=== PATIENT | male | born 1955 | race Caucasian/White ===

== ENCOUNTER 2019-08-05 11:13 | Outpatient (CLI) | payer OTHER | END 2019-08-05 11:27 | disposition home or self-care (01) | LOC: RAD 11:13 | DX: M47.26 Other spondylosis with radiculopathy, lumbar region (principal); M43.16 Spondylolisthesis, lumbar region; M54.5 Low back pain; G03.8 Meningitis due to other specified causes; Z98.890 Other specified postprocedural states; R26.2 Difficulty in walking, not elsewhere classified; R20.2 Paresthesia of skin; M43.8X9 Other specified deforming dorsopathies, site unspecified ==